=== PATIENT | male | born 1940 | race Caucasian/White ===

== ENCOUNTER 2017-02-17 16:07 | Inpatient (IN) | payer MEDICARE, OTHER ==
[~2017-02-17] VITALS: Ht 185.4 cm; Wt 102.8 kg
[2017-02-17] MEDS ORDERED: SODIUM CHLORIDE 0.9% 1,000 ML IV ONE (16:20)
[2017-02-17] MEDS ORDERED: SODIUM CHLORIDE FLUSH 10ML SYR IVF ONE (16:30)
[2017-02-17 16:58] LABS: ASPARTATE AMINO TRANSFERASE 19 U/L (15-37); BLOOD UREA NITROGEN 16 mg/dL (7-18)
[2017-02-17] MEDS ORDERED: CYAN25009 PO (17:02)
[2017-02-17 17:03] LABS: IS PT STATUS REG ER OR PRE ER? YES
[2017-02-17] MEDS ORDERED: FINA5TAB4 PO (17:09)
[2017-02-17] MEDS ORDERED: CLON2TAB2 PO (17:09)
[2017-02-17] MEDS ORDERED: PANT40TA5 PO (17:09)
[2017-02-17] MEDS ORDERED: VALS80TA3 PO (17:09)
[2017-02-17] MEDS ORDERED: METO200T3 PO (17:09)
[2017-02-17] MEDS ORDERED: MAGN400T36 PO (17:09)
[2017-02-17] MEDS ORDERED: CLOP75TA PO (17:09)
[2017-02-17] MEDS ORDERED: ASPI500T16 PO (17:09)
[2017-02-17] MEDS ORDERED: ATOR20TA9 PO (17:09)
[2017-02-17] MEDS ORDERED: TAMS0.4C2 PO (17:09)
[2017-02-17] MEDS ORDERED: GUAI-103 PO (17:09)
[2017-02-17] MEDS ORDERED: POLYETHYLENE GLYCOL 17 GM PACKET PO PRN (19:00)
[2017-02-17] MEDS ORDERED: BISACODYL 10 MG SUPP PR PRN (19:00)
[2017-02-17] MEDS ORDERED: ONDANSETRON 2MG/ML, 2ML IVPush PRN (19:00)
[2017-02-17 20:48] VITALS: BP 132/71
[2017-02-17 20:49] VITALS: BP 124/80
[2017-02-17 20:50] VITALS: BP 111/75
[2017-02-17] MEDS: SODIUM CHLORIDE FLUSH 3ML SYRINGE IVF SCH (21:00)
[2017-02-17] MEDS ORDERED: GUAIFENESIN/DM 200-20MG, 10ML UDC PO PRN (21:00)
[2017-02-17] MEDS: HEPARIN 5,000 UNITS/ML, 1ML SQ SCH (22:28)
[2017-02-17] MEDS: ATORVASTATIN 20 MG TABLET PO SCH (22:28)
[2017-02-18 04:38] VITALS: BP 118/83
[2017-02-18 04:39] VITALS: BP 144/92
[2017-02-18 04:40] VITALS: BP 136/81
[2017-02-18] MEDS: HEPARIN 5,000 UNITS/ML, 1ML SQ SCH ×3 (05:08→20:21)
[2017-02-18 07:54] VITALS: BP_SYST 117; BP_SYST 118; BP_SYST 99; BP_DIAS 64; BP_DIAS 76; BP_DIAS 77
[2017-02-18] MEDS: TAMSULOSIN 0.4 MG CAP.ER.24H PO SCH (08:15)
[2017-02-18] MEDS: MAGNESIUM OXIDE 400 MG TABLET PO SCH (08:15)
[2017-02-18] MEDS: VALSARTAN 80 MG TABLET PO SCH (08:15)
[2017-02-18] MEDS: CLOPIDOGREL 75 MG TABLET PO SCH (08:16)
[2017-02-18] MEDS: SENNA/DOCUSATE TABLET PO SCH (08:16)
[2017-02-18] MEDS: CYANOCOBALAMIN 1,000 MCG TABLET PO SCH (08:16)
[2017-02-18] MEDS: FINASTERIDE 5 MG TABLET PO SCH (08:16)
[2017-02-18] MEDS: METOPROLOL SUCCINATE 100 MG TAB.ER.24H PO SCH (08:17)
[2017-02-18] MEDS: SODIUM CHLORIDE FLUSH 3ML SYRINGE IVF SCH ×2 (08:26→20:22)
[2017-02-18] MEDS ORDERED: OMNIPAQUE 350 MG/ML, 100ML BOTTLE ONE (09:52)
[2017-02-18] MEDS ORDERED: VENL150C PO (10:05)
[2017-02-18] MEDS ORDERED: BUPR150T73 PO (10:05)
[2017-02-18] MEDS: VENLAFAXINE 75 MG CAP ER PO SCH (11:04)
[2017-02-18] MEDS: BUPROPION SR 150 MG TABLET PO SCH (11:04)
[2017-02-18] MEDS: SODIUM CHLORIDE 0.9% 1,000 ML IV SCH ×2 (11:04→20:21)
[2017-02-18 13:56] VITALS: BP_SYST 105; BP_SYST 109; BP_SYST 95; BP_DIAS 64; BP_DIAS 71
[2017-02-18 19:19] VITALS: BP_SYST 118; BP_SYST 130; BP_SYST 131; BP_DIAS 75; BP_DIAS 82; BP_DIAS 85
[2017-02-18] MEDS: ATORVASTATIN 20 MG TABLET PO SCH (20:21)
[2017-02-19 02:23] VITALS: BP_SYST 131; BP_SYST 133; BP_DIAS 81; BP_DIAS 82; BP_DIAS 85
[2017-02-19] MEDS: HEPARIN 5,000 UNITS/ML, 1ML SQ SCH ×2 (04:51→13:00)
[2017-02-19 08:20] VITALS: BP 101/65
[2017-02-19 08:24] VITALS: BP 117/76
[2017-02-19] MEDS: CYANOCOBALAMIN 1,000 MCG TABLET PO SCH (08:26)
[2017-02-19] MEDS: SODIUM CHLORIDE FLUSH 3ML SYRINGE IVF SCH (08:26)
[2017-02-19] MEDS: SODIUM CHLORIDE 0.9% 1,000 ML IV SCH (08:26)
[2017-02-19] MEDS: CLOPIDOGREL 75 MG TABLET PO SCH (08:26)
[2017-02-19] MEDS: MAGNESIUM OXIDE 400 MG TABLET PO SCH (08:27)
[2017-02-19] MEDS: METOPROLOL SUCCINATE 100 MG TAB.ER.24H PO SCH (08:27)
[2017-02-19] MEDS: VALSARTAN 80 MG TABLET PO SCH (08:27)
[2017-02-19] MEDS: TAMSULOSIN 0.4 MG CAP.ER.24H PO SCH (08:28)
[2017-02-19] MEDS: FINASTERIDE 5 MG TABLET PO SCH (08:28)
[2017-02-19] MEDS: VENLAFAXINE 75 MG CAP ER PO SCH (08:28)
[2017-02-19] MEDS: BUPROPION SR 150 MG TABLET PO SCH (08:28)
[2017-02-19] MEDS: SENNA/DOCUSATE TABLET PO SCH (08:28)
[2017-02-19 08:35] VITALS: BP 122/68
== END 2017-02-19 14:49 | disposition home or self-care (01) | DRG 312 ==
LOC: ED 18:50 → EDIP 18:58 → ED 19:08 → 4EST 20:36 → DCLOUNGE 02-19 14:30
PROVIDERS: ADMIT Family Medicine; ATTEND Family Medicine
DX: I95.1 Orthostatic hypotension (principal); E78.5 Hyperlipidemia, unspecified; G89.29 Other chronic pain; K22.70 Barrett's esophagus without dysplasia; G47.33 Obstructive sleep apnea (adult) (pediatric); E66.9 Obesity, unspecified; E78.2 Mixed hyperlipidemia; F10.10 Alcohol abuse, uncomplicated; F41.0 Panic disorder [episodic paroxysmal anxiety]; I12.9 Hypertensive chronic kidney disease with stage 1 through stage 4 chronic kidney disease, or unspecified chronic kidney disease; I44.0 Atrioventricular block, first degree; M54.2 Cervicalgia; I71.2 Thoracic aortic aneurysm, without rupture; K52.9 Noninfective gastroenteritis and colitis, unspecified; I71.4 Abdominal aortic aneurysm, without rupture; N18.2 Chronic kidney disease, stage 2 (mild); N40.0 Benign prostatic hyperplasia without lower urinary tract symptoms; Z86.73 Personal history of transient ischemic attack (TIA), and cerebral infarction without residual deficits; Z86.79 Personal history of other diseases of the circulatory system; Z87.891 Personal history of nicotine dependence; Z98.52 Vasectomy status; Z79.02 Long term (current) use of antithrombotics/antiplatelets; Z79.899 Other long term (current) drug therapy; Z68.29 Body mass index [BMI] 29.0-29.9, adult
CPT/HCPCS: 36415; 70450; 71010; 71275; 80053; 80061; 81003; 83036; 84443; 84484; 85025; 87324; 93005; 93306; 93880; 99285; J1644; Q9967; J7030

== ENCOUNTER → 2017-09-29 | Outpatient (CLI) | payer MEDICARE, OTHER ==
[~2017-09-29] MED LIST: ASPI500T16 PO; ATOR20TA9 PO; BUPR150T73 PO; CLON2TAB2 PO; CLOP75TA PO; CYAN25009 PO; FINA5TAB4 PO; GUAI-103 PO; MAGN400T36 PO; METO200T5 PO; PANT40TA5 PO; TAMS0.4C2 PO; VALS80TA3 PO; VENL150C PO
== END | disposition home or self-care (01) ==
LOC: RAD 12:34
PROVIDERS: ATTEND Internal Medicine
DX: G31.9 Degenerative disease of nervous system, unspecified (principal); E88.2 Lipomatosis, not elsewhere classified; H91.90 Unspecified hearing loss, unspecified ear; R44.0 Auditory hallucinations; R42 Dizziness and giddiness; R41.3 Other amnesia
CPT/HCPCS: 70551; 72148

== ENCOUNTER → 2018-04-19 | Outpatient (CLI) | payer MEDICARE ==
[~2018-04-19] MED LIST changes: +METO200T47 PO; -METO200T5 PO; +OMNIPAQUE 350 MG/ML, 100ML BOTTLE ONE; +REGADENOSON 0.4 MG/5 ML SYRINGE ONE
== END | disposition home or self-care (01) ==
LOC: CFH 09:39
PROVIDERS: ATTEND Internal Medicine Cardiovascular Disease
DX: I35.1 Nonrheumatic aortic (valve) insufficiency (principal); I35.8 Other nonrheumatic aortic valve disorders; I71.2 Thoracic aortic aneurysm, without rupture; I10 Essential (primary) hypertension
CPT/HCPCS: 71275; 93306; Q9967; J2785